=== PATIENT | female | born 1965 | race Two or more races ===

== ENCOUNTER 2017-01-13 20:11 | Emergency (ER) | payer OTHER ==
[~2017-01-13 20:11] MED LIST: ALORA TD; AMOXIL500 MG PO; CALCIUM 1,2001 EACH PO; DILANTIN100 MG PO; FOLIC ACID1 MG PO; LAMICTAL100 MG PO; MULTIVITAM1 TAB.CHEW PO; NORCO 5/325 TAB1 TAB PO; TAMIFLU75 MG/CAP PO; VITAMIN C PO; [UNRECOGNIZED DRUG - OTHER]; [UNRECOGNIZED DRUG - OTHER] TD
[2017-01-13] MEDS ORDERED: NORCO 5-325 TA1 EACH PO (21:03)
== END 2017-01-13 21:29 ==
LOC: EDMED 20:11
DX: S06.0X9A Concussion with loss of consciousness of unspecified duration, initial encounter (principal); S50.312A Abrasion of left elbow, initial encounter; S50.311A Abrasion of right elbow, initial encounter; G40.909 Epilepsy, unspecified, not intractable, without status epilepticus; Z79.899 Other long term (current) drug therapy; V00.131A Fall from skateboard, initial encounter; Y93.51 Activity, roller skating (inline) and skateboarding; Y92.019 Unspecified place in single-family (private) house as the place of occurrence of the external cause; Y99.8 Other external cause status
CPT/HCPCS: J1885